=== PATIENT | female | born 1975 | race Caucasian/White ===

== ENCOUNTER 2019-01-03 19:32 | Emergency (ER) | payer OTHER ==
[~2019-01-03] VITALS: Ht 170.2 cm; Wt 84.4 kg
[2019-01-03 19:42] VITALS: Ht 170.2 cm; Wt 84.4 kg
[2019-01-03 20:38] VITALS: BP 117/76
== END 2019-01-03 20:38 | disposition home or self-care (01) ==
LOC: ED 19:32
DX: L03.113 Cellulitis of right upper limb (principal); F41.9 Anxiety disorder, unspecified; Z90.49 Acquired absence of other specified parts of digestive tract; Z98.890 Other specified postprocedural states; Z88.1 Allergy status to other antibiotic agents; W57.XXXA Bitten or stung by nonvenomous insect and other nonvenomous arthropods, initial encounter; Y93.89 Activity, other specified; Y92.89 Other specified places as the place of occurrence of the external cause; Y99.8 Other external cause status
CPT/HCPCS: J2920

== ENCOUNTER 2019-01-13 18:32 | Emergency (ER) | payer OTHER ==
[~2019-01-13] VITALS: Ht 170.2 cm; Wt 83.9 kg
[2019-01-13 19:05] VITALS: Ht 170.2 cm; Wt 83.9 kg
[2019-01-13 20:18] VITALS: BP 110/72
== END 2019-01-13 20:18 | disposition home or self-care (01) ==
LOC: ED 18:32
DX: R21 Rash and other nonspecific skin eruption (principal); L29.9 Pruritus, unspecified; F41.9 Anxiety disorder, unspecified; Z90.49 Acquired absence of other specified parts of digestive tract; Z98.890 Other specified postprocedural states; Z88.8 Allergy status to other drugs, medicaments and biological substances